=== PATIENT | female | born 1990 | race Hispanic/Latino ===

== ENCOUNTER 2016-08-18 08:45 | Emergency (ER) | payer BC ==
[2016-08-18] MEDS ORDERED: Sodium Chloride 0.9% 1,000 ML ONE (09:20)
[2016-08-18] MEDS ORDERED: diphenhydrAMINE HCl 50 MG/ML 1 ML VIAL ONE (09:21)
[2016-08-18] MEDS ORDERED: Metoclopramide HCl 10 MG/2 ML VIAL ONE (09:21)
== END 2016-08-18 11:00 | disposition home or self-care (01) ==
LOC: NAV ERS 08:45
DX: R51 Headache (principal); F41.9 Anxiety disorder, unspecified; F32.9 Major depressive disorder, single episode, unspecified; Z87.891 Personal history of nicotine dependence
CPT/HCPCS: 96374; 96375; J1200; J2765; J7050